=== PATIENT | female | born 1935 | race African-American/Black ===

== ENCOUNTER 2017-02-09 14:15 | Inpatient (IN) ==
[~2017-02-09 14:15] MED LIST: HEPARIN/NACL 0.9% 2 UNITS/ML 1,000 ML IV ONE; LIDOCAINE 1% 20 ML VIAL ONE; MIDAZOLAM 2 MG/2 ML VIAL ONE; fentaNYL 100 MCG/2 ML VIAL ONE
[2017-02-09] MEDS ORDERED: BIVALIRUDIN 250 MG VIAL IV ONE (14:16)
[2017-02-09] MEDS ORDERED: CLOPIDOGREL 300 MG TABLET ONE (14:55)
[2017-02-09] MEDS ORDERED: MORPHINE 10 MG/1 ML VIAL IV PRN (15:57)
[2017-02-09] MEDS ORDERED: NITROGLYCERIN SL 0.4 MG TABLET SL PRN (15:57)
[2017-02-09] MEDS ORDERED: ONDANSETRON 4 MG/2 ML VIAL IV PRN (15:57)
[2017-02-09] MEDS ORDERED: INFLUENZA VIRUS VACCINE 0.5 ML SYRINGE IM ONE (17:00)
[2017-02-09] MEDS: SODIUM CHLORIDE 0.45% 1,000 ML IV SCH ×2 (17:09→18:00)
[2017-02-09 17:38] LABS: Basophils % 0.3 % (0.0-0.8); Hematocrit 34.5 VOL% (35.7-47.0); Hemoglobin 11.4 GM/DL (12.0-16.0); Immature Granulocytes % 0.3 %; Immature Granulocytes Absolute 0.03 #; Lymphocytes # 1.7 10*3/uL (1.4-4.0); Lymphocytes % 14.7 % (21.3-54.2); Mean Corpuscular Hemoglobin 28 PG (27-34); Mean Platelet Volume 11.2 FL (9.6-12.0); Monocytes % 8.9 % (1.7-12.7); Neutrophils # 8.8 10*3/uL (1.4-7.4); Neutrophils % 75.8 % (38.7-73.9); Platelet Count 181 T/CUMM (130-400); Red Blood Count 4.01 MC/CUMM (3.8-5.5); Red Cell Distribution Width 13.7 % (9.3-17.3); White Blood Count 11.6 T/CUMM (4-12)
[2017-02-09 18:06] LABS: Troponin I Only 15.2 NG/ML (0.00-0.045)
[2017-02-09 18:09] LABS: Calcium 8.3 MG/DL (8.5-10.1); Osmolality,Calculated 275.8 MOS/KG (273-304); Potassium 4.1 MMOL/L (3.5-5.1)
[2017-02-09] MEDS: FAMOTIDINE 20 MG TABLET PO SCH (21:11)
[2017-02-10 01:21] LABS: Basophils # 0.1 10*3/uL (0.0-0.2); Basophils % 0.5 % (0.0-0.8); Eosinophils % 0.3 % (0.00-10.9); Hematocrit 31.3 VOL% (35.7-47.0); Hemoglobin 10.4 GM/DL (12.0-16.0); Immature Granulocytes % 0.2 %; Immature Granulocytes Absolute 0.02 #; Lymphocytes # 1.5 10*3/uL (1.4-4.0); Lymphocytes % 13.6 % (21.3-54.2); Mean Corpuscular HGB Conc 33.2 GM/DL (32-36); Mean Corpuscular Hemoglobin 28 PG (27-34); Mean Corpuscular Volume 85.5 FL (87-102); Mean Platelet Volume 10.8 FL (9.6-12.0); Monocytes # 1.4 10*3/uL (0.11-0.8); Neutrophils # 7.8 10*3/uL (1.4-7.4); Neutrophils % 72.4 % (38.7-73.9); Platelet Count 172 T/CUMM (130-400); Red Blood Count 3.66 MC/CUMM (3.8-5.5); Red Cell Distribution Width 13.7 % (9.3-17.3); White Blood Count 10.8 T/CUMM (4-12)
[2017-02-10 02:37] LABS: Calcium 8.2 MG/DL (8.5-10.1)
[2017-02-10 02:38] LABS: CKMB % 3.9 %; Osmolality,Calculated 275.7 MOS/KG (273-304); Potassium 3.7 MMOL/L (3.5-5.1); VLDL CHOLESTEROL 25.8 MG/DL
[2017-02-10 02:39] LABS: Troponin I Only 13.2 NG/ML (0.00-0.045)
[2017-02-10] MEDS: ASPIRIN 325 MG TABLET PO SCH (08:19)
[2017-02-10] MEDS: FAMOTIDINE 20 MG TABLET PO SCH ×2 (08:19→21:03)
[2017-02-10] MEDS: CLOPIDOGREL 75 MG TABLET PO SCH (08:19)
[2017-02-10] MEDS ORDERED: ROSUVASTATIN 20 MG TABLET PO ONE (09:21)
[2017-02-10] MEDS: CITALOPRAM 20 MG TABLET PO SCH (09:38)
[2017-02-10] MEDS: METOPROLOL SUCCINATE XL 50 MG TABLET PO SCH (09:38)
[2017-02-10] MEDS: LISINOPRIL 20 MG TABLET PO SCH (09:38)
[2017-02-10 09:40] LABS: CKMB % 3.9 %; Troponin I Only 11.4 NG/ML (0.00-0.045)
[2017-02-10] MEDS: POLYETHYLENE GLYCOL POWDER 17 GM PACK PO SCH (11:50)
[2017-02-10] MEDS ORDERED: ZALEPLON 5 MG CAPSULE PO PRN (15:49)
[2017-02-10] MEDS ORDERED: guaiFENesin/DM ER 600-30 MG TABLET PO PRN (15:49)
[2017-02-10] MEDS ORDERED: diphenhydrAMINE CAP 25 MG CAPSULE PO PRN (15:49)
[2017-02-10] MEDS: ENOXAPARIN 40 MG/0.4 ML SYRINGE SUBCUT SCH (16:51)
[2017-02-10] MEDS: ACETAMINOPHEN/CODEINE 300-30 MG TABLET PO PRN ×2 (16:58→23:39)
[2017-02-10] MEDS ORDERED: ROSUVASTATIN 20 MG TABLET PO SCH (21:00)
[2017-02-10] MEDS ORDERED: amLODIPine 5 MG TABLET PO SCH (21:00)
[2017-02-10] MEDS: ATORVASTATIN 80 MG TABLET PO SCH (21:03)
[2017-02-10] MEDS: ACETAMINOPHEN 325 MG TABLET PO PRN (21:03)
[2017-02-11 04:58] LABS: Basophils % 0.4 % (0.0-0.8); Eosinophils # 0.1 10*3/uL (0.0-0.87); Eosinophils % 1.2 % (0.00-10.9); Hemoglobin 9.3 GM/DL (12.0-16.0); Immature Granulocytes % 0.4 %; Immature Granulocytes Absolute 0.04 #; Lymphocytes # 1.2 10*3/uL (1.4-4.0); Lymphocytes % 12.6 % (21.3-54.2); Mean Corpuscular HGB Conc 33.2 GM/DL (32-36); Mean Corpuscular Hemoglobin 29 PG (27-34); Mean Corpuscular Volume 86.7 FL (87-102); Mean Platelet Volume 11.7 FL (9.6-12.0); Monocytes # 1.1 10*3/uL (0.11-0.8); Monocytes % 11.9 % (1.7-12.7); Neutrophils # 6.8 10*3/uL (1.4-7.4); Neutrophils % 73.5 % (38.7-73.9); Platelet Count 176 T/CUMM (130-400); Red Blood Count 3.23 MC/CUMM (3.8-5.5); Red Cell Distribution Width 13.7 % (9.3-17.3); White Blood Count 9.2 T/CUMM (4-12)
[2017-02-11 05:36] LABS: Albumin 2.9 G/DL (3.4-5.0); Bilirubin,Direct 0.25 MG/DL (0.0-0.20); Bilirubin,Indirect 1.1 MG/DL (0.0-1.0); Bilirubin,Total 1.3 MG/DL (0.2-1.0); Calcium 8.5 MG/DL (8.5-10.1); Magnesium 2.1 MG/DL (1.8-2.4); Osmolality,Calculated 277.5 MOS/KG (273-304); Potassium 4.2 MMOL/L (3.5-5.1)
[2017-02-11] MEDS: LEVOTHYROXINE 50 MCG TABLET PO SCH (06:25)
[2017-02-11] MEDS: ASPIRIN 325 MG TABLET PO SCH (08:55)
[2017-02-11] MEDS: POLYETHYLENE GLYCOL POWDER 17 GM PACK PO SCH (08:55)
[2017-02-11] MEDS: CITALOPRAM 20 MG TABLET PO SCH (08:55)
[2017-02-11] MEDS: CLOPIDOGREL 75 MG TABLET PO SCH (08:56)
[2017-02-11] MEDS: PANTOPRAZOLE 40 MG TABLET PO SCH (08:56)
[2017-02-11] MEDS: LISINOPRIL 20 MG TABLET PO SCH (08:56)
[2017-02-11] MEDS: FAMOTIDINE 20 MG TABLET PO SCH ×2 (08:56→22:14)
[2017-02-11] MEDS: METOPROLOL SUCCINATE XL 50 MG TABLET PO SCH (08:56)
[2017-02-11] MEDS: ISOSORBIDE MONONITRATE 30 MG TABLET PO SCH (10:30)
[2017-02-11] MEDS: ACETAMINOPHEN 325 MG TABLET PO PRN (15:21)
[2017-02-11] MEDS: ENOXAPARIN 40 MG/0.4 ML SYRINGE SUBCUT SCH (16:18)
[2017-02-11] MEDS: ATORVASTATIN 80 MG TABLET PO SCH (22:14)
[2017-02-12 04:34] LABS: Basophils % 0.4 % (0.0-0.8); Eosinophils # 0.2 10*3/uL (0.0-0.87); Eosinophils % 2.4 % (0.00-10.9); Hematocrit 26.7 VOL% (35.7-47.0); Hemoglobin 8.9 GM/DL (12.0-16.0); Immature Granulocytes % 0.4 %; Immature Granulocytes Absolute 0.03 #; Lymphocytes # 1.5 10*3/uL (1.4-4.0); Lymphocytes % 19.4 % (21.3-54.2); Mean Corpuscular HGB Conc 33.3 GM/DL (32-36); Mean Corpuscular Hemoglobin 29 PG (27-34); Mean Corpuscular Volume 86.7 FL (87-102); Mean Platelet Volume 11.2 FL (9.6-12.0); Monocytes # 0.8 10*3/uL (0.11-0.8); Monocytes % 11.3 % (1.7-12.7); Neutrophils # 4.9 10*3/uL (1.4-7.4); Neutrophils % 66.1 % (38.7-73.9); Platelet Count 189 T/CUMM (130-400); Red Blood Count 3.08 MC/CUMM (3.8-5.5); Red Cell Distribution Width 13.6 % (9.3-17.3); White Blood Count 7.5 T/CUMM (4-12)
[2017-02-12 05:34] LABS: Albumin 2.8 G/DL (3.4-5.0); Bilirubin,Direct 0.18 MG/DL (0.0-0.20); Bilirubin,Indirect 0.4 MG/DL (0.0-1.0); Bilirubin,Total 0.6 MG/DL (0.2-1.0); Troponin I Only 5.91 NG/ML (0.00-0.045)
[2017-02-12 05:39] LABS: Calcium 8.6 MG/DL (8.5-10.1); Magnesium 2.1 MG/DL (1.8-2.4); Osmolality,Calculated 281.4 MOS/KG (273-304); Potassium 4.6 MMOL/L (3.5-5.1)
[2017-02-12 05:45] LABS: Calcium 8.4 MG/DL (8.5-10.1); Osmolality,Calculated 283.3 MOS/KG (273-304); Potassium 4.6 MMOL/L (3.5-5.1)
[2017-02-12] MEDS: ISOSORBIDE MONONITRATE 30 MG TABLET PO SCH (10:00)
[2017-02-12] MEDS: FAMOTIDINE 20 MG TABLET PO SCH (10:01)
[2017-02-12] MEDS: LEVOTHYROXINE 50 MCG TABLET PO SCH (10:01)
[2017-02-12] MEDS: CITALOPRAM 20 MG TABLET PO SCH (10:03)
[2017-02-12] MEDS: CLOPIDOGREL 75 MG TABLET PO SCH (10:03)
[2017-02-12] MEDS: ASPIRIN 325 MG TABLET PO SCH (10:03)
[2017-02-12] MEDS: PANTOPRAZOLE 40 MG TABLET PO SCH (10:04)
[2017-02-12] MEDS: POLYETHYLENE GLYCOL POWDER 17 GM PACK PO SCH (10:04)
[2017-02-12] MEDS: LISINOPRIL 20 MG TABLET PO SCH (10:18)
[2017-02-12] MEDS: METOPROLOL SUCCINATE XL 50 MG TABLET PO SCH (10:18)
[2017-02-12 11:38] VITALS: BP 112/66
== END 2017-02-12 13:23 | disposition home or self-care (01) | DRG 247 ==
LOC: N.CC 14:15 → N.CL 14:15 → N.TELES 02-10 18:33
PROVIDERS: ADMIT Internal Medicine Cardiovascular Disease; ATTEND Internal Medicine Cardiovascular Disease
PROC: CLCCHCL (ICD-10-PCS; 2017-02-09 13:45)

== ENCOUNTER 2017-03-28 07:34 | Inpatient (IN) ==
[2017-03-28] MEDS ORDERED: NITROGLYCERIN SL 0.4 MG TABLET SL ONE (08:02)
[2017-03-28] MEDS ORDERED: NITROGLYCERIN 2% OINT 1 INCH/GM PACK TOP STA (08:04)
[2017-03-28] MEDS ORDERED: ASPIRIN 325 MG TABLET PO STA (08:04)
[2017-03-28] MEDS ORDERED: NITROGLYCERIN SL 0.4 MG TABLET SL PRN ×2 (08:04→18:25)
[2017-03-28] MEDS ORDERED: METOPROLOL TARTRATE 5 MG/5 ML VIAL IV STA (08:04)
[2017-03-28] MEDS ORDERED: HEPARIN 5,000 UNIT/1 ML VIAL IV STA (08:07)
[2017-03-28] MEDS ORDERED: NITROGLYCERIN 2% OINT 1 INCH/GM PACK TOP ONE (08:08)
[2017-03-28] MEDS ORDERED: HEPARIN 5,000 UNIT/1 ML VIAL ONE (08:08)
[2017-03-28] MEDS ORDERED: METOPROLOL TARTRATE 5 MG/5 ML VIAL IV ONE (08:08)
[2017-03-28] MEDS ORDERED: ONDANSETRON 4 MG/2 ML VIAL ONE (08:12)
[2017-03-28 08:15] LABS: Basophils % 0.6 % (0.0-0.8); Eosinophils # 0.3 10*3/uL (0.0-0.87); Eosinophils % 3.8 % (0.00-10.9); Hematocrit 33.1 VOL% (35.7-47.0); Hemoglobin 10.5 GM/DL (12.0-16.0); Immature Granulocytes % 0.3 %; Immature Granulocytes Absolute 0.02 #; Lymphocytes # 1.6 10*3/uL (1.4-4.0); Lymphocytes % 22.4 % (21.3-54.2); Mean Corpuscular HGB Conc 31.7 GM/DL (32-36); Mean Corpuscular Hemoglobin 28 PG (27-34); Mean Corpuscular Volume 87.3 FL (87-102); Mean Platelet Volume 10.9 FL (9.6-12.0); Monocytes # 0.6 10*3/uL (0.11-0.8); Monocytes % 8.2 % (1.7-12.7); Neutrophils # 4.5 10*3/uL (1.4-7.4); Neutrophils % 64.7 % (38.7-73.9); Platelet Count 280 T/CUMM (130-400); Red Blood Count 3.79 MC/CUMM (3.8-5.5); Red Cell Distribution Width 13.9 % (9.3-17.3); White Blood Count 6.9 T/CUMM (4-12)
[2017-03-28] MEDS ORDERED: ONDANSETRON 4 MG/2 ML VIAL IV STA (08:15)
[2017-03-28] MEDS ORDERED: ASPIRIN 325 MG TABLET ONE (08:23)
[2017-03-28] MEDS ORDERED: HEPARIN DRIP 25,000 UNITS/500 ML PREMIX IV SCH (08:30)
[2017-03-28 08:41] LABS: Albumin 3.6 G/DL (3.4-5.0); Bilirubin,Total 0.6 MG/DL (0.2-1.0); Osmolality,Calculated 281.1 MOS/KG (273-304); Potassium 4.1 MMOL/L (3.5-5.1)
[2017-03-28] MEDS ORDERED: HEPARIN/NACL 0.9% 2 UNITS/ML 2,000 ML IV ONE (09:10)
[2017-03-28] MEDS ORDERED: LIDOCAINE 1% 20 ML VIAL ONE (09:10)
[2017-03-28] MEDS ORDERED: fentaNYL 100 MCG/2 ML VIAL ONE (09:40)
[2017-03-28] MEDS ORDERED: MIDAZOLAM 2 MG/2 ML VIAL ONE (09:40)
[2017-03-28] MEDS ORDERED: MORPHINE 2 MG/1 ML SYRINGE IV PRN (10:14)
[2017-03-28] MEDS ORDERED: ACETAMINOPHEN 325 MG TABLET PO PRN (10:14)
[2017-03-28] MEDS ORDERED: ACETAMINOPHEN/CODEINE 300-30 MG TABLET PO PRN (10:14)
[2017-03-28] MEDS ORDERED: ZALEPLON 5 MG CAPSULE PO PRN (10:14)
[2017-03-28] MEDS ORDERED: SODIUM CHLORIDE 0.45% 1,000 ML IV SCH (10:30)
[2017-03-28] MEDS ORDERED: ENOXAPARIN 40 MG/0.4 ML SYRINGE SUBCUT SCH (21:00)
[2017-03-28] MEDS ORDERED: ATORVASTATIN 80 MG TABLET PO SCH (21:00)
[2017-03-29 03:50] LABS: Basophils # 0.1 10*3/uL (0.0-0.2); Basophils % 0.8 % (0.0-0.8); Eosinophils # 0.4 10*3/uL (0.0-0.87); Eosinophils % 5.5 % (0.00-10.9); Hematocrit 28.7 VOL% (35.7-47.0); Immature Granulocytes % 0.3 %; Immature Granulocytes Absolute 0.02 #; Lymphocytes # 1.4 10*3/uL (1.4-4.0); Lymphocytes % 18.3 % (21.3-54.2); Mean Corpuscular HGB Conc 31.4 GM/DL (32-36); Mean Corpuscular Hemoglobin 27 PG (27-34); Mean Corpuscular Volume 86.7 FL (87-102); Monocytes # 0.8 10*3/uL (0.11-0.8); Monocytes % 10.4 % (1.7-12.7); Neutrophils # 4.8 10*3/uL (1.4-7.4); Neutrophils % 64.7 % (38.7-73.9); Platelet Count 218 T/CUMM (130-400); Red Blood Count 3.31 MC/CUMM (3.8-5.5); White Blood Count 7.5 T/CUMM (4-12)
[2017-03-29 04:10] LABS: Osmolality,Calculated 279.3 MOS/KG (273-304); Potassium 3.8 MMOL/L (3.5-5.1); Risk Ratio 2.6; VLDL CHOLESTEROL 27.6 MG/DL
[2017-03-29] MEDS ORDERED: LEVOTHYROXINE 50 MCG TABLET PO SCH (06:00)
[2017-03-29] MEDS ORDERED: PANTOPRAZOLE 40 MG TABLET PO SCH (09:00)
[2017-03-29] MEDS ORDERED: LISINOPRIL 20 MG TABLET PO SCH (09:00)
[2017-03-29] MEDS ORDERED: CLOPIDOGREL 75 MG TABLET PO SCH (09:00)
[2017-03-29] MEDS ORDERED: CITALOPRAM 20 MG TABLET PO SCH (09:00)
[2017-03-29] MEDS ORDERED: ISOSORBIDE MONONITRATE 60 MG TABLET PO SCH (09:00)
[2017-03-29] MEDS ORDERED: METOPROLOL SUCCINATE XL 50 MG TABLET PO SCH (09:00)
[2017-03-29] MEDS ORDERED: ASPIRIN 325 MG TABLET PO SCH (09:00)
[2017-03-29 15:02] VITALS: BP 109/73
== END 2017-03-28 14:33 | disposition home or self-care (01) | DRG 287 ==
LOC: EDSDCBED → N.ED 07:34 → N.CL 09:24 → UNDODEPER 09:24 → ED 09:24 → N.ED 09:24 → N.CC 09:24 → N.CL 09:25 → N.CC 09:26 → N.SDSINP 10:14 → EDSDCBED 10:26 → N.CC 10:26 → N.CL 03-29 14:33 → N.CC 03-29 23:56 → N.ED 03-30 → ED 03-30 00:22 → UNDODEPSDC 03-30 00:27 → UNDODEPREF 03-30 00:38 → N.CL 03-30 10:09
PROVIDERS: ADMIT Internal Medicine Cardiovascular Disease; ATTEND Internal Medicine Cardiovascular Disease
PROC: CLCCHCL (ICD-10-PCS; 2017-03-28 09:45)

== ENCOUNTER 2017-10-02 05:11 | Observation (INO) ==
[2017-10-02] MEDS ORDERED: ASPIRIN 325 MG TABLET PO STA (05:47)
[2017-10-02 05:53] LABS: Basophils % 0.4 % (0.0-0.8); Eosinophils # 0.1 10*3/uL (0.0-0.87); Eosinophils % 1.3 % (0.00-10.9); Hematocrit 39.9 VOL% (35.7-47.0); Immature Granulocytes % 0.4 %; Immature Granulocytes Absolute 0.04 #; Lymphocytes % 8.6 % (21.3-54.2); Mean Corpuscular HGB Conc 32.6 GM/DL (32-36); Mean Corpuscular Hemoglobin 29 PG (27-34); Mean Corpuscular Volume 87.5 FL (87-102); Monocytes # 0.8 10*3/uL (0.11-0.8); Monocytes % 7.3 % (1.7-12.7); Neutrophils # 9.1 10*3/uL (1.4-7.4); Platelet Count 224 T/CUMM (130-400); Red Blood Count 4.56 MC/CUMM (3.8-5.5); Red Cell Distribution Width 14.2 % (9.3-17.3); White Blood Count 11.1 T/CUMM (4-12)
[2017-10-02] MEDS ORDERED: ONDANSETRON 4 MG/2 ML VIAL IV STA (06:04)
[2017-10-02] MEDS ORDERED: LEVOFLOXACIN INJ 500 MG in PREMIX 1 EACH IV STA (06:05)
[2017-10-02 06:20] LABS: Bilirubin,Total 0.6 MG/DL (0.2-1.0); Calcium 9.7 MG/DL (8.5-10.1); Osmolality,Calculated 283.3 MOS/KG (273-304); Total Protein 8.2 G/DL (6.4-8.3)
[2017-10-02 06:40] LABS: Lactic Acid 1.5 MMOL/L (0.4-2.0)
[2017-10-02] MEDS ORDERED: ONDANSETRON 4 MG/2 ML VIAL IV PRN (09:17)
[2017-10-02] MEDS ORDERED: ACETAMINOPHEN 325 MG TABLET PO PRN (09:17)
[2017-10-02] MEDS ORDERED: MORPHINE 4 MG/1 ML VIAL IV PRN (09:17)
[2017-10-02] MEDS ORDERED: NITROGLYCERIN SL 0.4 MG TABLET SL PRN (09:23)
[2017-10-02] MEDS ORDERED: PANTOPRAZOLE 40 MG TABLET PO SCH (09:30)
[2017-10-02] MEDS ORDERED: CIPROFLOXACIN INJ 400 MG in PREMIX 1 EACH IV SCH (09:30)
[2017-10-02] MEDS: ISOSORBIDE MONONITRATE 60 MG TABLET PO SCH (10:23)
[2017-10-02] MEDS: PANTOPRAZOLE 40 MG TABLET PO SCH (10:23)
[2017-10-02] MEDS: LISINOPRIL 20 MG TABLET PO SCH (10:23)
[2017-10-02] MEDS: METOPROLOL SUCCINATE XL 50 MG TABLET PO SCH (10:24)
[2017-10-02] MEDS: amLODIPine 5 MG TABLET PO SCH (10:24)
[2017-10-02] MEDS: CLOPIDOGREL 75 MG TABLET PO SCH (10:24)
[2017-10-02] MEDS: ASPIRIN 325 MG TABLET PO SCH (10:25)
[2017-10-02] MEDS: SODIUM CHLORIDE 0.9% 1,000 ML IV SCH (10:28)
[2017-10-02] MEDS: metroNIDAZOLE INJ 500 MG in PREMIX 1 EACH IV SCH ×3 (10:32→20:47)
[2017-10-02] MEDS ORDERED: ATORVASTATIN 80 MG TABLET PO SCH (21:00)
[2017-10-03] MEDS: SODIUM CHLORIDE 0.9% 1,000 ML IV SCH (02:01)
[2017-10-03] MEDS: metroNIDAZOLE INJ 500 MG in PREMIX 1 EACH IV SCH ×2 (03:04→09:02)
[2017-10-03 05:30] LABS: Basophils % 0.4 % (0.0-0.8); Eosinophils # 0.2 10*3/uL (0.0-0.87); Hematocrit 29.6 VOL% (35.7-47.0); Immature Granulocytes % 0.2 %; Immature Granulocytes Absolute 0.01 #; Lymphocytes % 20.4 % (21.3-54.2); Mean Corpuscular HGB Conc 32.8 GM/DL (32-36); Mean Corpuscular Hemoglobin 28 PG (27-34); Mean Corpuscular Volume 86.5 FL (87-102); Monocytes # 0.5 10*3/uL (0.11-0.8); Monocytes % 9.3 % (1.7-12.7); Neutrophils # 3.4 10*3/uL (1.4-7.4); Neutrophils % 66.7 % (38.7-73.9); Platelet Count 172 T/CUMM (130-400); Red Cell Distribution Width 14.6 % (9.3-17.3)
[2017-10-03 05:41] LABS: Hemoglobin 9.7 GM/DL (12.0-16.0); Red Blood Count 3.42 MC/CUMM (3.8-5.5)
[2017-10-03 06:02] LABS: Albumin 2.7 G/DL (3.4-5.0); Bilirubin,Total 0.8 MG/DL (0.2-1.0); Calcium 8.3 MG/DL (8.5-10.1); Potassium 4.1 MMOL/L (3.5-5.1); Risk Ratio 2.19; Thyroid Stimulating Hormone 1.04 uIU/ml (0.358-3.74); VLDL CHOLESTEROL 17.8 MG/DL
[2017-10-03] MEDS ORDERED: LEVOTHYROXINE 50 MCG TABLET PO SCH (06:30)
[2017-10-03 08:21] VITALS: BP 161/82
[2017-10-03] MEDS: METOPROLOL SUCCINATE XL 50 MG TABLET PO SCH (09:00)
[2017-10-03] MEDS ORDERED: CITALOPRAM 20 MG TABLET PO SCH (09:00)
[2017-10-03] MEDS: ISOSORBIDE MONONITRATE 60 MG TABLET PO SCH (09:01)
[2017-10-03] MEDS: CLOPIDOGREL 75 MG TABLET PO SCH (09:01)
[2017-10-03] MEDS: PANTOPRAZOLE 40 MG TABLET PO SCH (09:01)
[2017-10-03] MEDS: amLODIPine 5 MG TABLET PO SCH (09:01)
[2017-10-03] MEDS: LISINOPRIL 20 MG TABLET PO SCH (09:01)
[2017-10-03] MEDS: ASPIRIN 325 MG TABLET PO SCH (09:01)
== END 2017-10-03 10:21 | disposition home or self-care (01) ==
LOC: N.ED 05:11 → N.EDINP 05:11 → N.2E 09:51
PROVIDERS: ADMIT Internal Medicine; ATTEND Internal Medicine